=== PATIENT | male | born 1985 | race Caucasian/White ===

== ENCOUNTER 2023-11-07 14:44 | Emergency (ER) | payer OTHER, SELFPAY ==
[2023-11-07 14:48] VITALS: BP 141/110; PULSE 104; RESP 16; TEMP 36.6; O2SAT 98; BMI 35.9
--- NOTE | 2023-11-07 14:51 | XRR_ITS ---
PROCEDURE INFORMATION: Exam: XR Left Hand Exam date and time: 11/07/2023 3:04 PM Age: 38 years old Clinical indication: Injury or trauma; Left; Injury details: Laceration to palm of hand TECHNIQUE: Imaging protocol: Radiologic exam of the left hand. Views: 3 or more views. COMPARISON: No relevant prior studies available. FINDINGS: Bones/joints: Mild degenerative change the triscaphe joint. No acute fracture or dislocation. Soft tissues: No significant soft tissue pathology. No foreign body evident. XR/XR hand LT min 3V* [id number] IMPRESSION: No acute pathology.
--- NOTE | 2023-11-07 14:51 | ED_ITS ---
Documented by User: Jaskaran Weir MD 11/07/23 16:11 HPI - General Adult General: Chief complaint: Wound/Laceration Stated complaint: left hand lac Time Seen by Provider: 11/07/23 14:49 Source: patient Mode of arrival: ambulatory Limitations: no limitations History of Present Illness: 38-year-old male states he was climbing over a fence no wires broke he fell down and hit his left hand on a T post. He does have a laceration palm of his hand at the base of his thumb. He has full range of motion to his thumb and fingers he rates his pain a 2 out of 10 bleeding is controlled Associated symptoms: Deny chest pain, dyspnea, headache(s), nausea, rash or vomiting Review of Systems Const: Denies: fever(s) or chills ENMT: Denies: throat pain or dental pain Card: Denies: chest pain Resp: Denies: dyspnea GI: Denies: abdominal pain, nausea, vomiting or diarrhea Musc: Reports: extremity pain; Denies: neck pain or back pain Skin/Breast: Denies: rash Neuro: Denies: headache(s) Physical Exam Const: COMMON NORMALS: no acute distress, patient oriented x3 and healthy appearing HENMT: COMMON NORMALS: normocephalic and atraumatic HEAD & SCALP: normocephalic and atraumatic Neck/C-Spine: COMMON NORMALS: full ROM and supple Chest: COMMONS NORMALS: normal inspection of the chest Resp: COMMON NORMALS: normal respiratory effort Cardio: COMMON NORMALS: regular rate, regular rhythm and No murmurs present (Cardio) RATE: regular rate RHYTHM: regular rhythm Extremity: COMMON NORMALS: full ROM NARRATIVE EXTREMITY EXAM: Laceration noted to palmar left hand base of the thumb a V-shaped laceration roughly 4 cm no tendon involvement has full strength all digits Neuro: COMMON NORMALS: patient oriented x3, moves all extremities and no focal motor deficits Psych: COMMON NORMALS: mental status grossly normal, Normal thought process present and cooperative THOUGHT PROCESS: Normal thought process present Skin: COMMON NORMALS: no rashes or lesions noted and no wounds GENERAL SKIN EXAM: no rashes or lesions noted Course Vital Signs: Vital signs: Vital Signs Temperature 97.8 F 11/07/23 14:48 Pulse Rate 104 H 11/07/23 14:48 Respiratory Rate 16 11/07/23 14:48 Blood Pressure 141/110 11/07/23 14:48 Pulse Oximetry 98 11/07/23 14:48 Oxygen Delivery Me thod Room Air 11/07/23 14:48 MDM - General Adult Medical Decision Making I was consulted by Dr. Weir to repair patient's left hand laceration. There does not appear to be any tendon involvement at this time. XR is unremarkable. Wound was copiously irrigated and repaired as documented. Tetanus was updated. Apart from laceration repair I did not actively participate in any portion of patient's care. ES Patient presents for the laceration was repaired he is have sutures removed in [address] him on antibiotics for prophylaxis x-ray showed no foreign bodies he has no signs of any tendon involvement stable for discharge Lab Data Radiology Impressions Hand X-Ray 11/07/23 14:51 IMPRESSION: No acute pathology. Discharge Plan Discharge Patient Disposition: Home Clinical Impression: Laceration Condition: Stable Prescriptions: New Augmentin 500-125 mg tablet 1 tab PO BID Qty: 14 0RF Discharge Orders: Discharge ED (Routine); Ordered 11/07/23 Ordered By: Jaskaran Weir Referrals: Shiva Solis DO [Primary Care Provider] - Discharge Diet: Advance as tolerated Discharge Activity: Resume usual activity Patient Instructions: Care For Your Stitches (ED), Laceration (ED) Activity Restrictions/Additional Instructions: suture removal in 7 days Coding Level of Care Code ED Roll Clamp Operator for Chg Fwd Documented by User: LORI Clancy 11/07/23 16:08 HPI - General Adult General: Chief complaint: Wound/Laceration Stated complaint: left hand lac Time Seen by Provider: 11/07/23 14:49 Procedures Laceration Laceration 1: Site: hand Side (If applicable): left Size (cm): 4.5 Description: flap and irregular Depth: simple, single layer Local Anesthetic: lidocaine 2% Amount of anesthesia used (mL): 10 Pre-repair: wound explored and irrigated extensively Skin layer closed with: nylon Size (cm): 4-0 Number of sutures: 13 Technique: simple, interrupted Course Vital Signs: Vital signs: Vital Signs Temperature 97.8 F 11/07/23 14:48 Pulse Rate 104 H 11/07/23 14:48 Respiratory Rate 16 11/07/23 14:48 Blood Pressure 141/110 11/07/23 14:48 Pulse Oximetry 98 11/07/23 14:48 Oxygen Delivery Me thod Room Air 11/07/23 14:48 MDM - General Adult Medical Decision Making I was consulted by Dr. Weir to repair patient's left hand laceration. There does not appear to be any tendon involvement at this time. XR is unremarkable. Wound was copiously irrigated and repaired as documented. Tetanus was updated. Apart from laceration repair I did not actively participate in any portion of patient's care. ES Lab Data Radiology Impressions Hand X-Ray 11/07/23 14:51 IMPRESSION: No acute pathology. All radiology interpretation(s) finalized by discharge Discharge Plan Discharge Patient Disposition: Home Clinical Impression: Laceration Condition: Stable Prescriptions: New Augmentin 500-125 mg tablet 1 tab PO BID Qty: 14 0RF Discharge Orders: Discharge ED (Routine); Ordered 11/07/23 Ordered By: Jaskaran Weir Referrals: Shiva Solis DO [Primary Care Provider] - Discharge Diet: Advance as tolerated Discharge Activity: Resume usual activity Patient Instructions: Care For Your Stitches (ED), Laceration (ED) Activity Restrictions/Additional Instructions: suture removal in 7 days Coding Level of Care Code ED Roll Clamp Operator for Fe Tucker
--- NOTE | 2023-11-07 14:58 | PC.PHAR ---
Addendum entered by Maria Elena Garza 11/07/23 15:01: VERIFIED WITH PHARMACY Original Note: LAST KNOWN MEDICATION FILLED 12/20/22 FOR KETOCONAZOLE 2% CREAM-FINISHED WITH THERAPY
[2023-11-07] MEDS: tetanus-dipt-pertussis 0.5 mL SDV IM (15:02)
== END 2023-11-07 16:03 | disposition home or self-care (01) ==
PROVIDERS: Emergency Provider Emergency Medicine; PCP Internal Medicine
DX: S61.412A Laceration without foreign body of left hand, initial encounter (principal); W22.8XXA Striking against or struck by other objects, initial encounter; Z23 Encounter for immunization
CPT/HCPCS: 12002; 73130; 90471; 90715; 99283